=== PATIENT | female | born 1980 | race Caucasian/White ===

== ENCOUNTER 2019-04-25 19:56 | Inpatient (IN) | payer MEDICAID, SELFPAY ==
[2019-04-25] VITALS (7 sets, daily range): BP systolic 115–144; BP diastolic 69–101; PULSE 110–126; RESP 21–31; TEMP 36.2–36.7; O2SAT 99–100; BMI 16.7; BMI 16.6
[2019-04-25] MEDS: 0.9% Normal Saline 1,000 ML 999 ML IV ×2 (20:11→21:30)
--- NOTE | 2019-04-25 20:11 | RAD_ITS ---
STUDY: X-RAY CHEST REASON FOR EXAM: Female, 39 years old. Chest pain, nausea TECHNIQUE: Single AP portable view of the chest. COMPARISON: None. FINDINGS: EKG leads overlie the chest The lungs are clear and expanded. There is no demonstrated pleural abnormality. Normal size heart. Normal mediastinum and gabriele. Normal visualized pulmonary arteries. Normal visualized aortic arch and descending thoracic aorta. Normal visualized thoracic spine. Normal visualized ribs, clavicles, and shoulders. There is no demonstrated abnormality of the visualized soft tissue structures of the upper abdomen. RAD/Chest 1 View (Portable) IMPRESSION: Normal x-ray examination of the chest. Electronically Signed: Delvin Peralta MD at 20:36 EDT , Service support ,
--- NOTE | 2019-04-25 20:11 | EKG12_ITS ---
Test Reason : SOB Blood Pressure : / mmHG Vent. Rate : 123 BPM Atrial Rate : 123 BPM P-R Int : 126 ms QRS Dur : 078 ms QT Int : 344 ms P-R-T Axes : 083 084 036 degrees QTc Int : 492 ms Sinus tachycardia Biatrial enlargement Nonspecific ST abnormality Abnormal ECG Confirmed by NATHALIA CONLEY, VERITO ([id number]), associate editor ABRAN RUIZ ([id number]) on 04/27/2019 10:54:02 AM Referred By: EVA Confirmed By:VERITO SLOAN MD
--- NOTE | 2019-04-25 20:12 | ED.VIS.GEN ---
History of Present Illness Chief Complaint: Shortness of Breath Informant: Patient Onset: Yesterday Context: Gradual Onset Timing: Continuous Current Severity: Severe Maximum Severity: Severe Narrative: Patient is a 39-year-old female with type 1 diabetes mellitus presenting with nausea, vomiting, myalgias and hyperglycemia. She is concerned she is in DKA. Patient states she is been stressed out recently because her father just . This because her sugars to be higher. She denies any recent illnesses. She notes since yesterday her symptoms been progressing. She has also associated shortness of breath, chest tightness and abdominal discomfort. Patient states she was started to DKA 3 to 4 weeks ago and was hospitalized because of a GI bug that she got from her neighborhood kids. Patient states that she was only able to eat a couple pretzels today. She did take her Lantus but did not take her Humalog because she was not eating. She had a normal bowel movement today. She denies any other complaints at this time. Prior similar symptoms: Yes - DKA Recent Illness/Hospitalization: Yes - 3-4 weeks ago for DKA Past Medical History - Allergies and Home Meds Allergies/Adverse Reactions: Allergies No Known Allergies Allergy (Verified 04/25/19 20:02) Past Medical History: - - DM 1 Surgical History: appendectomy Smoking Status: Current every day smoker - Family History Maternal Family History: Reports: - - Denies any maternal medical history. Paternal Family History: Reports: Cancer - His father from throat cancer Review of Systems All systems negative except as indicated General: Reports: Malaise Cardiovascular: Reports: Chest pain Respiratory: Reports: Dyspnea Gastrointestinal: Reports: Abdominal pain, Nausea, Vomiting Musculoskeletal: Reports: Myalgias Physical Exam Vital Signs/Narrative: Vital Signs Temp Pulse Resp BP Pulse Ox 04/25/19 20:05 126 H 23 H 99 04/25/19 19:58 97.7 F L 125 H 31 H 144/87 H 100 Inital Vital Signs reviewed: Yes General: Well developed, Cachectic, No Acute Distress Head: Normocephalic, Atraumatic Eyes: Perrl, EOMI ENT: No rhinorrhea, Dry mucous membranes Neck: Supple, Nontender, No lymphadenopathy, No JVD Cardiovascular: Regular rhythm, No murmurs, Tachycardia Respiratory: CTA bilaterally, Chest nontender, - - Tachypnea Abdomen: Soft, Nondistended, Normal bowel sounds, Tender - Diffuse. Negative for: Guarding, Rebound tenderness Back: Nontender, Normal Inspection Extremities: Nontender, No edema Skin: Normal color, No rash Neurological: Alert, Oriented x3, Cranial nerves II-XII grossly intact, Normal Strength, Normal Sensation Psychological: Normal affect, - - Anxious Diagnostic/Tx/Re-eval Chest X-Ray - ED: 1 View, Read by ED Physician, Read by Radiologist, No Acute Disease Clinical Impression(s) from Imaging Studies Chest X-Ray 04/25/19 20:11 IMPRESSION: Normal x-ray examination of the chest. Electronically Signed: Delvin Peralta MD at 20:36 EDT , Service support , Laboratory Data 04/25/19 04/25/19 04/25/19 20:05 20:05 20:05 WBC 28.9 H RBC 4.88 Hgb 15.1 H Hct 49.0 H MCV 100.4 H MCH 30.9 MCHC 30.8 L RDW Std Deviation 44.7 H RDW Coeff of Adrienne 11.9 Plt Count 457 H MPV 11.0 Immature Gran % (Auto) 1.700 H Neut % (Auto) 89.1 H Lymph % (Auto) 4.7 L Stewart % (Auto) 4.2 Eos % (Auto) 0.0 Baso % (Auto) 0.3 Absolute Neuts (auto) 25.8 H Absolute Lymphs (auto) 1.37 Nucleated RBC % 0 Differential Comment SCANNED Platelet Estimate SLT INC Macrocytosis 1+ Specimen Type Sample Site VBG pH VBG pO2 VBG O2 Sat (Calc) VBG O2 Content VBG Base Excess POC Mix VBG pCO2 Pt Tmp O2 Delivery Device Blood Gas Notified Whom Blood Gas Notified Time Sodium 132 L Potassium 5.2 H Chloride 100 Carbon Dioxide 6.0 L* Anion Gap 26 H BUN 19 H Creatinine 1.21 H Estim Creat Clear Calc 45.59 Est GFR (MDRD) Af Amer 63 Est GFR (MDRD) Non-Af 52 L BUN/Creatinine Ratio 15.7 Glucose 577 H* Calcium 9.4 Troponin I < 0.015 Urine Color Urine Clarity Urine pH Ur Specific [place] Urine Protein Urine Glucose (UA) Urine Ketones Urine Occult Blood Urine Nitrite Urine Bilirubin Urine Urobilinogen Ur Leukocyte Esterase Urine RBC Urine WBC Ur Squamous Epith Cells Urine Bacteria Urine Mucus Ur Drug Screen Comment Acetone Level LARGE H POC Glucose 04/25/19 04/25/19 04/25/19 20:05 20:11 20:20 WBC RBC Hgb Hct MCV MCH MCHC RDW Std Deviation RDW Coeff of Adrienne Plt Count MPV Immature Gran % (Auto) Neut % (Auto) Lymph % (Auto) Stewart % (Auto) Eos % (Auto) Baso % (Auto) Absolute Neuts (auto) Absolute Lymphs (auto) Nucleated RBC % Differential Comment Platelet Estimate Macrocytosis Specimen Type Sample Site VBG pH VBG pO2 VBG O2 Sat (Calc) VBG O2 Content VBG Base Excess POC Mix VBG pCO2 Pt Tmp O2 Delivery Device Blood Gas Notified Whom Blood Gas Notified Time Sodium Cancelled Potassium Cancelled Chloride Cancelled Carbon Dioxide Cancelled Anion Gap Cancelled BUN Cancelled Creatinine Cancelled Estim Creat Clear Calc Cancelled Est GFR (MDRD) Af Amer Cancelled Est GFR (MDRD) Non-Af Cancelled BUN/Creatinine Ratio Cancelled Glucose Cancelled Calcium Cancelled Troponin I Urine Color Straw Urine Clarity Clear Urine pH 5.0 Ur Specific [place] 1.020 Urine Protein 30 H Urine Glucose (UA) 1000 H Urine Ketones 150 H Urine Occult Blood 250 H Urine Nitrite Negative Urine Bilirubin Negative Urine Urobilinogen Normal Ur Leukocyte Esterase Negative Urine RBC 5-10 SEEN Urine WBC 0 SEEN Ur Squamous Epith Cells 0-5 SEEN Urine Bacteria 0 SEEN Urine Mucus 0 SEEN Ur Drug Screen Comment Acetone Level POC Glucose > 500 H* 04/25/19 04/25/19 04/25/19 20:21 20:25 21:14 WBC RBC Hgb Hct MCV MCH MCHC RDW Std Deviation RDW Coeff of Adrienne Plt Count MPV Immature Gran % (Auto) Neut % (Auto) Lymph % (Auto) Stewart % (Auto) Eos % (Auto) Baso % (Auto) Absolute Neuts (auto) Absolute Lymphs (auto) Nucleated RBC % Differential Comment Platelet Estimate Macrocytosis Specimen Type HAL Sample Site OTHER VBG pH 7.00 L* VBG pO2 54 H VBG O2 Sat (Calc) 70 VBG O2 Content 6 L VBG Base Excess -26 L POC Mix VBG pCO2 Pt Tmp 20.7 L O2 Delivery Device Room Air Blood Gas Notified Whom ED MD Blood Gas Notified Time 2002 Sodium Potassium Chloride Carbon Dioxide Anion Gap BUN Creatinine Estim Creat Clear Calc Est GFR (MDRD) Af Amer Est GFR (MDRD) Non-Af BUN/Creatinine Ratio Glucose Calcium Troponin I Urine Color Urine Clarity Urine pH Ur Specific [place] Urine Protein Urine Glucose (UA) Urine Ketones Urine Occult Blood Urine Nitrite Urine Bilirubin Urine Urobilinogen Ur Leukocyte Esterase Urine RBC Urine WBC Ur Squamous Epith Cells Urine Bacteria Urine Mucus Ur Drug Screen Comment Acetone Level POC Glucose > 500 H* - Rhythm Strip Rhythm Strip: Sinus Tach Rate: 123 Ectopy: None - EKG Initial EKG Interpretation: Sinus Tachycardia, - - Sinus tachycardia at a rate of 123 Normal intervals Normal axis Normal ST segments Prominent P waves - Medical Decision Making Patient is evaluated for intractable nausea and vomiting. She is hyperglycemic. She has a history of DM 1 as well as DKA. Presentation is concerning for acute DKA. Patient is acidotic with an elevated anion, hyperglycemic and has large acetones. She is given 2 L IV fluids. Her potassium is normal and she started on insulin drip at 5 units an hour. Patient does have a significant leukocytosis however I suspect it is reactive. No obvious source of infection is found. She is complaining of generalized body pains and abdominal pain however I do not suspect an acute infection at this time. Troponin is normal. EKG shows sinus tachycardia but no ACS. Patient is admitted to the ICU for further treatment of her DKA. Discussed with Dr. Ceja who is agreeable. Patient does states she is feeling very anxious and jittery so she is given 1 dose of Ativan in the emergency room. Patient is mentating appropriately and does not have signs of coma while in the emergency room. - Critical Care Time Critical care time (excluding procedures): 30-74 minutes - 32 minutes of critical care time?frequent reevaluation, medication orders, discussing with consultants and bedside care for treatment and management of acute DKA ED Disposition - Plan for ED Patient: Disposition: Acute Care Hospital [facility] Diagnosis: DKA (diabetic ketoacidoses), LAUREN (acute kidney injury), Leukocytosis
[2019-04-25 20:15] LABS: Bedside Glucose > 500 mg/dL (70-110)
--- NOTE | 2019-04-25 20:16 | ED.RN ---
NO OLD EKG
[2019-04-25] MEDS: Ondansetron 4 MG/2 ML Vial IV (20:28)
[2019-04-25 20:30] LABS: Absolute Lymphocyte Count 1.37 X10^3/uL (0.83-4.51); Absolute Neutrophil Count 25.8 X10^3/uL (2.0-7.7); Basophil# 0.09 X10^3/uL; Basophil% 0.3 % (0-1); Hemoglobin 15.1 g/dL (12.0-15.0); Lymphocyte # 1.37 X10^3/ul (4.0); Lymphocyte % 4.7 % (19-41); Mean Corp Hgb Conc 30.8 g/dL (32-36); Mean Corpuscular Hgb 30.9 pg (27.0-32.0); Mean Corpuscular Volume 100.4 fL (81-99); Monocyte% 4.2 % (0-10); NRBC Flagged by Analyzer 0 % (0-5); Neutrophil # 25.76 X10^3/uL (2.7-7.7); Neutrophil % 89.1 % (47-70); POSITIVE DIFFERENTIAL YES; Platelet Count 457 K/mm3 (150-450); RBC Distribution Width CV 11.9 % (11.6-14.6); RBC Distribution Width SD 44.7 fl (35.1-43.9); Red Blood Count 4.88 M/mm3 (4.2-5.4); White Blood Count 28.9 K/mm3 (4.4-11.0)
[2019-04-25 20:35] LABS: Blood Gas Specimen Type VEN; O2 Delivery Device Room Air; SITE OTHER; Time Given 2003; VBG BASE EXCESS -26 mmol/L (-1.0-3.5); VBG Bicarbonate 5 mmol/L (22-26); VBG Oxygen Content 6 mmol/L (23-33); VBG PO2 54 mmHg (25-40); VBG SO2 70 % (50-70); VBG pCO2 20.7 mmHg (41-51)
[2019-04-25 20:35] LABS: Bacteria 0 SEEN /hpf (None Seen); Mucous, Urine 0 SEEN /hpf (<or=2+); White Blood Cells 0 SEEN /hpf (0-5)
[2019-04-25 20:36] LABS: Color, Urine Straw (Yellow); Glucose, Dipstick 1000 mg/dl (Normal); Leukocyte Esterase-Dipstick Negative /ul (Negative); Nitrite-Dipstick Negative (Negative); Occult Blood-Urine 250 /ul (Negative); Protein-Dipstick 30 mg/dl (Negative); Urine Bilirubin Dipstick Negative (Negative); Urine Clarity Clear (Clear); Urine Urobilinogen Normal (Normal)
[2019-04-25 20:36] LABS: Differential Indicated SCAN CRITERIA MET
--- NOTE | 2019-04-25 20:36 | CPS ---
Critical results given to Dr. Nuñez.
[2019-04-25 20:48] LABS: Anion Gap 26 (5-15); BUN 19 mg/dL (7-18); BUN/Creat Ratio 15.7 RATIO (10-20); Calcium,Total 9.4 mg/dL (8.5-10.1); Chloride 100 mmol/L (98-107); Creatinine, Serum 1.21 mg/dL (0.55-1.02); EST Glomerular Filtration Rate 52 mL/min (>60); Est Glom Filt Rate - Afr Amer 63 mL/min (>60); Estimated Creatinine Clearance 45.59 ml/min; Glucose 577 mg/dL (74-106); Potassium 5.2 mmol/L (3.5-5.1); Sodium Level 132 mmol/L (136-145)
--- NOTE | 2019-04-25 20:49 | ED.RN ---
lab called with critical lab results. urine ketones 150. co2 level [address] glucose level 576. Dr. Nuñez made aware. no new orders at this time
[2019-04-25 20:55] LABS: Ketone-Dipstick 150 mg/dl (Negative)
[2019-04-25 20:59] LABS: Red Blood Cells-Urine 5-10 SEEN /hpf (0-5); Squamous Epithelial Cells - UA 0-5 SEEN /hpf (5-10)
[2019-04-25] MEDS: LORazepam 2 MG/ML Syringe 0.5 MG IV (21:19)
[2019-04-25 21:21] LABS: Bedside Glucose > 500 mg/dL (70-110)
--- NOTE | 2019-04-25 21:28 | HP.PCM_ITS ---
Problem List (1) DKA (diabetic ketoacidoses) Status: Acute History of Present Illness Date of Admission: 04/25/19 Chief Complaint: SHORTNESS OF BREATH The patient is a 39 year old F with a significant history of type 1 diabetes who presented to emergency department with shortness of breath. Her symptoms started a day before presentation. Associated with symptoms is nausea and vomiting. Also while in the emergency department department patient had one loose bowel movement. Further she has chest heaviness and abdominal pain. Patient lives in the [place] but came to the [facility] because her father . Patient reports that on the day of presentation she took her twice daily Lantus. However she was unable to take her short acting insulin because she was having nausea and vomiting and could not keep anything down her stomach. At the emergency department patient was very anxious and was given Ativan to help calm her down. Past Medical History Medical History: Medical History (Last Updated 04/25/19 @ 21:37 by Marcial Diehl MD) Type 1 diabetes mellitus E10.9 Allergies No Known Allergies Allergy (Verified 04/25/19 20:02) Home Medications: Ambulatory Orders Medication Instructions Recorded Insulin Glargine,Hum.rec.anlog 10 unit SQ BID 04/25/19 [Lantus] Insulin Lispro [Humalog] unit SQ TID 04/25/19 Surgical History: appendectomy Lives: Alone Smoking Status: Current every day smoker Tobacco Use: Cigarettes Alcohol: Rare Drugs: Marijuana - *Family History Maternal History Items: - - Denies any maternal medical history. Paternal History Items: Cancer - His father from throat cancer Review of Systems Constitutional: Reports: Anorexia. Denies: Chills, Fever, Weight Change HEENT: Denies: Head Aches, Sinus Congestion, Sinus Drainage Cardiovascular: Reports: Heaviness. Denies: Light Headedness, Palpitations, Syncope Respiratory: Reports: Shortness of Breath. Denies: Cough, Sputum production Gastrointestinal: Reports: Abdominal Pain, Diarrhea, Nausea, Vomiting Genitourinary: Denies: Dysuria Musculoskeletal: Denies: Joint Pain, Joint Tenderness Skin: Denies: Rash, Wounds Neurological: Denies: Numbness, Tingling, Focal weakness Psychiatric: Reports: Anxiety. Denies: Depression, Homicidal Ideations, Suicidal Ideations Hematologic/ Lymphatic: Denies: Easy Bruising, Easy Bleeding VTE Information - Inpt Only VTE Present on Admission: No VTE Mechan Device Prophylaxis: None VTE Pharm Prophylaxis ordered?: No Reason prophylaxis not ordered:: Treatment Not Indicated - Low risk. Encourage to ambulate. Patient Problems: Active and Suspected Problems (Last Updated 04/25/19 @ 21:37 by Marcial Diehl MD) DKA (diabetic ketoacidoses) (Acute) - Physical Exam Vitals/I&O's: Vital Signs Temp Pulse Resp BP Pulse Ox 97.1 F L 110 H 25 H 140/96 H 100 04/25/19 21:02 04/25/19 21:02 04/25/19 21:02 04/25/19 21:02 04/25/19 21:02 Oxygen Delivery Method Room Air Weight: 47.2 kg Body Mass Index (BMI) 16.7 Finger Stick Blood Glucose 509 General: Alert, Oriented x3, Cooperative HEENT: Atraumatic, PERRLA, EOMI, Normocephalic, - Oral: - - Loss of multiple teeth. Neck: Supple, No JVD, Negative Carotid Bruits Lungs: Clear to auscultation, Normal air movement, Short of Breath, Tachypneic, Using Accessory Muscles Cardiovascular: Normal S1, Normal S2, No murmurs, Tachycardic Abdomen: Bowel Sounds Present, Soft, Non Tender Extremities: No edema, Capillary Refill Less than 3 Seconds Skin: No rashes, No breakdown Musculoskeletal: No Tenderness to Palpation of Joints or Extremities Neurological: Cranial nerves II-XII grossly intact Psych/Mental Status: Anxious Laboratory Results 04/25/19 20:05: WBC 28.9 H, RBC 4.88, Hgb 15.1 H, Hct 49.0 H, MCV 100.4 H, MCH 30.9, MCHC 30.8 L, RDW Std Deviation 44.7 H, RDW Coeff of Adrienne 11.9, Plt Count 457 H, MPV 11.0, Immature Gran % (Auto) 1.700 H, Neut % (Auto) 89.1 H, Lymph % (Auto) 4.7 L, [place] % (Auto) 4.2, Eos % (Auto) 0.0, Baso % (Auto) 0.3, Absolute Neuts (auto) 25.8 H, Absolute Lymphs (auto) 1.37, Nucleated RBC % 0 04/25/19 20:05: Sodium 132 L, Potassium 5.2 H, Chloride 100, Carbon Dioxide 6.0 L*, Anion Gap 26 H, BUN 19 H, Creatinine 1.21 H, Estim Creat Clear Calc 45.59, Est GFR (MDRD) Af Amer 63, Est GFR (MDRD) Non-Af 52 L, BUN/Creatinine Ratio 15.7, Glucose 577 H*, Calcium 9.4, Troponin I < 0.015 04/25/19 20:05: Acetone Level LARGE H 04/25/19 20:05: Sodium Pending, Potassium Pending, Chloride Pending, Carbon Dioxide Pending, Anion Gap Pending, BUN Pending, Creatinine Pending, Est GFR (MDRD) Af Amer Pending, Est GFR (MDRD) Non-Af Pending, BUN/Creatinine Ratio Pending, Glucose Pending, Calcium Pending 04/25/19 20:11: POC Glucose > 500 H* 04/25/19 20:20: Urine Color Straw, Urine Clarity Clear, Urine pH 5.0, Ur Specific [place] 1.020, Urine Protein 30 H, Urine Glucose (UA) 1000 H, Urine Ketones 150 H, Urine Occult Blood 250 H, Urine Nitrite Negative, Urine Bilirubin Negative, Urine Urobilinogen Normal, Ur Leukocyte Esterase Negative, Urine RBC 5-10 SEEN, Urine WBC 0 SEEN, Ur Squamous Epith Cells 0-5 SEEN, Urine Bacteria 0 SEEN, Urine Mucus 0 SEEN 04/25/19 20:21: Specimen Type HAL, Sample Site OTHER, VBG pH 7.00 L*, VBG pO2 54 H, VBG O2 Sat (Calc) 70, VBG O2 Content 6 L, VBG Base Excess -26 L, POC Mix VBG pCO2 Pt Tmp 20.7 L, O2 Delivery Device Room Air, Blood Gas Notified Whom ED , Blood Gas Notified Time 200204/25/19 21:14: POC Glucose > 500 H* Current Medications Dextrose (D50w Syringe) 0 gm IV X1 PRN; Protocol PRN Reason: Hypoglycemia Protocol Sodium Chloride () 1,000 mls @ 999 mls/hr IV .Q1H1M ONE Last Admin: 04/25/19 20:11 Dose: 999 mls/hr Documented by: Insulin Human Lispro 100 unit/ (Sodium Chloride) 100 mls @ 4.72 mls/hr IV .[id number] [facility]; Protocol Last Admin: 04/25/19 21:20 Dose: 0.1 units/kg/hr, 4.7 mls/hr Documented by: Morphine Sulfate () 1 mg IV Q4H PRN PRN PRN Reason: MODERATE AND SEVERE PAIN Assessment/Plan All Active Problems (Last Updated 04/25/19 @ 21:37 by Marcial Diehl MD) DKA (diabetic ketoacidoses) (Acute) The patient is a 39 year old F with a significant history of type 1 diabetes who presented to emergency department with shortness of breath; nausea; vomiting; one loose bowel movement; chest heaviness; abdominal pain; anxiety was found to have ketones; anion gap with respiratory acidosis and elevated glucose consistent with DKA. DKA Serum glucose 577 acetone level large Bicarbonate level of 6. VBG pH of 7. Anion gap of 26 Sodium 132, . Corrected sodium 140 Insulin drip started from emergency department; continue Completed IV bolus of normal saline and normal saline infusion Because of potassium of 5.2 we will start patient on half-normal saline with 20 mEq of potassium. BMP every 4 hours to calculate anion gap. N.p.o. for now Admitted to ICU ICU electrolyte protocol ordered A1c ordered. Morphine and Zofran] as needed. Speech Communication Instructor consult. LAUREN On presentation creatinine was 1.21. No previous values to compare with. BUN over creatinine was 15.720 towards intrinsic renal etiology. Likely prerenal progression to ATN. IV hydration as above. Trend BMP. Avoid nephrotoxic's. Neutrophilic leukocytosis On presentation her white count was 28.9 with neutrophilic predominance. Likely reactive from stress secondary to DKA. Trend CBC. Erythrocytosis. On presentation her hemoglobin was 15.1. Hematocrit was 49. Likely secondary from dehydration and long-term effect of smoking. Trend CBC Tobacco abuse Counselled Declined nicotine patch Marijuana abuse Counselled DVT prophylaxis Low risk. Encouraged to ambulate. Code Visit Inpatient E&M: 38948 Init Hosp L3
[2019-04-25 21:39] LABS: Differential Comment SCANNED; Platelet Estimate SLT INC (ADEQ)
[2019-04-25 21:40] LABS: Macrocytosis 1+
[2019-04-25 23:25] LABS: Amphetamine Urine VISTA NEGATIVE (<1000 ng/mL); Barbiturate Urine VISTA NEGATIVE (< 200 ng/mL); Benzodiazepine Urine VISTA NEGATIVE (< 200 ng/mL); Cocaine Urine VISTA NEGATIVE (< 300 ng/mL); Ecstacy Urine VISTA NEGATIVE (< 500 ng/mL); Methadone Urine VISTA NEGATIVE (< 300 ng/mL); PCP Urine VISTA NEGATIVE (< 25 ng/mL); THC Urine VISTA POSITIVE (< 50 ng/mL); Vista UDS pH Range 6
[2019-04-25 23:40] LABS: Bedside Glucose 496 mg/dL (70-110)
[2019-04-25 23:40] LABS: Bedside Glucose 357 mg/dL (70-110)
[2019-04-26] VITALS (21 sets, daily range): BP systolic 90–138; BP diastolic 59–93; PULSE 73–120; RESP 15–28; TEMP 36.7–36.9; O2SAT 96–100
[2019-04-26 00:08] LABS: Hemoglobin A1c 10.7 % (4.2-6.3)
[2019-04-26] MEDS: Dext 5%-0.45% NS 1,000 ML 150 ML IV (01:05)
[2019-04-26 01:09] LABS: Anion Gap 19 (5-15); BUN 16 mg/dL (7-18); BUN/Creat Ratio 17.7 RATIO (10-20); Chloride 112 mmol/L (98-107); EST Glomerular Filtration Rate 73 mL/min (>60); Est Glom Filt Rate - Afr Amer 88 mL/min (>60); Estimated Creatinine Clearance 60.65 ml/min; Glucose 268 mg/dL (74-106); Potassium 5.1 mmol/L (3.5-5.1); Sodium Level 138 mmol/L (136-145)
[2019-04-26] MEDS: Potassium Chloride 10 MEQ in Dext 5%-0.45% NS 1,000 ML 150 MEQ IV ×2 (02:41→09:20)
[2019-04-26 02:46] LABS: Bedside Glucose 247 mg/dL (70-110)
[2019-04-26 02:46] LABS: Bedside Glucose 289 mg/dL (70-110)
[2019-04-26 02:46] LABS: Bedside Glucose 216 mg/dL (70-110)
[2019-04-26 04:31] LABS: Bedside Glucose 233 mg/dL (70-110)
[2019-04-26 04:31] LABS: Bedside Glucose 227 mg/dL (70-110)
[2019-04-26 04:53] LABS: Anion Gap 16 (5-15); BUN 12 mg/dL (7-18); BUN/Creat Ratio 12.6 RATIO (10-20); Calcium,Total 8.1 mg/dL (8.5-10.1); Chloride 112 mmol/L (98-107); Creatinine, Serum 0.95 mg/dL (0.55-1.02); EST Glomerular Filtration Rate 69 mL/min (>60); Est Glom Filt Rate - Afr Amer 83 mL/min (>60); Estimated Creatinine Clearance 57.45 ml/min; Glucose 202 mg/dL (74-106); Potassium 4.6 mmol/L (3.5-5.1); Sodium Level 138 mmol/L (136-145)
[2019-04-26 05:23] LABS: Absolute Neutrophil Count 22.1 X10^3/uL (2.0-7.7); Basophil# 0.08 X10^3/uL; Basophil% 0.3 % (0-1); Hematocrit 43.4 % (37-47); Hemoglobin 13.6 g/dL (12.0-15.0); Lymphocyte % 15.3 % (19-41); Mean Corp Hgb Conc 31.3 g/dL (32-36); Mean Corpuscular Volume 98.9 fL (81-99); Mean Platelet Vol. 10.6 fl (6.2-12.0); Monocyte# 1.57 X10^3/uL; Monocyte% 5.5 % (0-10); NRBC Flagged by Analyzer 0 % (0-5); Neutrophil # 22.13 X10^3/uL (2.7-7.7); Neutrophil % 76.9 % (47-70); POSITIVE DIFFERENTIAL YES; Platelet Count 368 K/mm3 (150-450); RBC Distribution Width CV 11.8 % (11.6-14.6); RBC Distribution Width SD 43.5 fl (35.1-43.9); Red Blood Count 4.39 M/mm3 (4.2-5.4); White Blood Count 28.8 K/mm3 (4.4-11.0)
[2019-04-26 05:36] LABS: Differential Indicated SCAN CRITERIA MET
[2019-04-26 06:06] LABS: Differential Comment SCANNED
[2019-04-26 06:06] LABS: Bedside Glucose 187 mg/dL (70-110)
[2019-04-26 06:06] LABS: Bedside Glucose 197 mg/dL (70-110)
--- NOTE | 2019-04-26 06:53 | CON.PCM_ITS ---
Problem List (1) Dental abscess Status: Suspected (2) DKA (diabetic ketoacidoses) Status: Acute Qualifiers: Diabetes mellitus type: type 1 Diabetes mellitus complication detail: without coma Qualified Code(s): E10.10 - Type 1 diabetes mellitus with ketoacidosis without coma (3) LAUREN (acute kidney injury) Status: Acute (4) Leukocytosis Status: Acute Qualifiers: Leukocytosis type: other Qualified Code(s): D72.828 - Other elevated white blood cell count Reason for Consult Date of Consultation: 04/26/19 Reason for Consultation: DKA History of Present Illness: The patient is a 39 year old F, with past medical history listed below, who presented to [facility] on 04/25/2019 secondary to nausea, vomiting, myalgias and hyperglycemia. Patient states that she is currently in town secondary to her father's . Patient states that she has not had any recent illnesses, but has noticed progression of symptoms over the past day. Patient has not used use, but states that she was admitted for DKA 3 to 4 weeks ago secondary to a GI bug. Patient typically gets cared for at [facility]. Patient reportedly did take her Lantus, but has not been taking her Humalog secondary to decreased appetite. Patient has been reporting intermittent dental pain. In the ER, patient was noted to be hyperglycemic with large acetones. Patient was given 2 L of IV fluids and potassium. Patient has remained hemodynamically stable overnight. Patient was transferred to the intensive care unit for continuation of the DKA protocol. This morning, patient reports some improvement in overall condition. However, patient still has some mild nausea and drowsiness. Patient believes the drowsiness is secondary to medication she received in the ER. Patient is reporting some dental issues. Patient states she has been on penicillin in the past secondary to dental abscesses. Patient denies any rashes, dysuria or productive cough. No sinus congestion or purulent sputum is been reported. Review of systems otherwise negative from a constitutional, HEENT, respiratory, cardiovascular, GI, genitourinary, musculoskeletal, skin, neurologic, psych iatric and hematologic system unless stated above. Past Medical History Medical History: Medical History (Last Updated 04/25/19 @ 21:37 by Marcial Diehl MD) Type 1 diabetes mellitus E10.9 Allergies No Known Allergies Allergy (Verified 04/25/19 20:02) Home Medications: Ambulatory Orders Medication Instructions Recorded Insulin Glargine,Hum.rec.anlog 10 unit SQ BID 04/25/19 [Lantus] Insulin Lispro [Humalog] unit SQ TID 04/25/19 Surgical History: appendectomy Lives: Alone Smoking Status: Current every day smoker Tobacco Use: Cigarettes Alcohol: Rare Drugs: Marijuana - *Family History Maternal History Items: - - Denies any maternal medical history. Paternal History Items: Cancer - His father from throat cancer Review of Systems Comment: See HPI Patient Problems: Active and Suspected Problems (Last Updated 04/25/19 @ 21:37 by Marcial Diehl MD) DKA (diabetic ketoacidoses) (Acute) LAUREN (acute kidney injury) (Acute) Leukocytosis (Acute) Dental abscess (Suspected) Objective: Chest x-ray shows no acute infiltrates. - Physical Exam Vitals/I&O's: Vital Signs Temp Pulse Resp BP Pulse Ox 36.7 C 102 H 18 100/61 96 04/26/19 04:00 04/26/19 06:00 04/26/19 06:00 04/26/19 06:00 04/26/19 06:00 Oxygen Delivery Method Room Air Weight: 47.5 kg Body Mass Index (BMI) 16.6 Finger Stick Blood Glucose 187 Intake and Output for Last 24 Hours 04/24/19 04/25/19 04/26/19 23:59 23:59 23:59 Intake Total 2378.66 / 2378.66 914.62 / 914.62 Output Total 1050 / 1050 Balance 2378.66 / 2378.66 -135.38 / -135.38 General: Alert, Oriented x3, Cooperative, No apparent distress, - - Appears older than stated age. Thin build. HEENT: Atraumatic, PERRLA, EOMI, Normocephalic, - - No scleral icterus or injection Oral: - - Very poor dentition. Some tenderness to palpation Neck: Supple, No JVD, No Nodes, Trachea Midline Lungs: Clear to auscultation, Normal air movement, No rhonchi, No wheeze, No rales, - - Symmetric expansion. No dullness to percussion. Cardiovascular: Regular rate, Regular Rhythm, Normal S1, Normal S2, No murmurs, No rub noted, No Gallop Abdomen: Bowel Sounds Present, Soft, Non Tender, Non-Distended Extremities: No clubbing, No cyanosis, No edema, Capillary Refill Less than 3 Seconds Skin: No rashes, No breakdown Musculoskeletal: No Tenderness to Palpation of Joints or Extremities Lymphatic: No Cervical, Supraclavicular, or Inguinal Adenopathy Neurological: Cranial nerves II-XII grossly intact, Neuro grossly intact, Motor Exam 5/5 strength throughout Psych/Mental Status: Alert and oriented to time, place, person, mood and affect Laboratory Results 04/25/19 20:05: WBC 28.9 H, RBC 4.88, Hgb 15.1 H, Hct 49.0 H, MCV 100.4 H, MCH 30.9, MCHC 30.8 L, RDW Std Deviation 44.7 H, RDW Coeff of Adrienne 11.9, Plt Count 457 H, MPV 11.0, Immature Gran % (Auto) 1.700 H, Neut % (Auto) 89.1 H, Lymph % (Auto) 4.7 L, [place] % (Auto) 4.2, Eos % (Auto) 0.0, Baso % (Auto) 0.3, Absolute Neuts (auto) 25.8 H, Absolute Lymphs (auto) 1.37, Nucleated RBC % 0, Differential Comment SCANNED, Platelet Estimate SLT INC, Macrocytosis 1+ 04/25/19 20:05: Sodium 132 L, Potassium 5.2 H, Chloride 100, Carbon Dioxide 6.0 L*, Anion Gap 26 H, BUN 19 H, Creatinine 1.21 H, Estim Creat Clear Calc 45.59, Est GFR (MDRD) Af Amer 63, Est GFR (MDRD) Non-Af 52 L, BUN/Creatinine Ratio 15.7, Glucose 577 H*, Calcium 9.4, Troponin I < 0.015 04/25/19 20:05: Acetone Level LARGE H 04/25/19 20:05: Sodium Cancelled, Potassium Cancelled, Chloride Cancelled, Carbon Dioxide Cancelled, Anion Gap Cancelled, BUN Cancelled, Creatinine Cancelled, Estim Creat Clear Calc Cancelled, Est GFR (MDRD) Af Amer Cancelled, Est GFR (MDRD) Non-Af Cancelled, BUN/Creatinine Ratio Cancelled, Glucose Cancelled, Calcium Cancelled 04/25/19 20:05: Hemoglobin A1c 10.7 H 04/25/19 20:11: POC Glucose > 500 H* 04/25/19 20:20: Urine Color Straw, Urine Clarity Clear, Urine pH 5.0, Ur Specific [place] 1.020, Urine Protein 30 H, Urine Glucose (UA) 1000 H, Urine Ketones 150 H, Urine Occult Blood 250 H, Urine Nitrite Negative, Urine Bilirubin Negative, Urine Urobilinogen Normal, Ur Leukocyte Esterase Negative, Urine RBC 5-10 SEEN, Urine WBC 0 SEEN, Ur Squamous Epith Cells 0-5 SEEN, Urine Bacteria 0 SEEN, Urine Mucus 0 SEEN 04/25/19 20:21: Specimen Type HAL, Sample Site OTHER, VBG pH 7.00 L*, VBG pO2 54 H, VBG O2 Sat (Calc) 70, VBG O2 Content 6 L, VBG Base Excess -26 L, POC Mix VBG pCO2 Pt Tmp 20.7 L, O2 Delivery Device Room Air, Blood Gas Notified Whom ED , Blood Gas Notified Time 200204/25/19 20:25: Urine Opiates Screen NEGATIVE, Urine Methadone Screen NEGATIVE, Ur Barbiturates Screen NEGATIVE, Ur Phencyclidine Scrn NEGATIVE, Ur Amphetamines Screen NEGATIVE, U Methamphetamin-MDMA NEGATIVE, U Benzodiazepines Scrn NEGATIVE, Urine Cocaine Screen NEGATIVE, U Cannabinoids Screen POSITIVE H, Ur Drug Screen Comment 04/25/19 21:14: POC Glucose > 500 H* 04/25/19 22:03: POC Glucose 496 H* 04/25/19 22:59: POC Glucose 357 H 04/25/19 23:56: POC Glucose 289 H 04/26/19 00:35: Sodium 138, Potassium 5.1, Chloride 112 H, Carbon Dioxide 7.0 L* , Anion Gap 19 H, BUN 16, Creatinine 0.90, Estim Creat Clear Calc 60.65, Est GFR (MDRD) Af Amer 88, Est GFR (MDRD) Non-Af 73, BUN/Creatinine Ratio 17.7, Glucose 268 H, Calcium 8.0 L 04/26/19 01:03: POC Glucose 216 H 04/26/19 01:52: POC Glucose 247 H 04/26/19 03:06: POC Glucose 233 H 04/26/19 04:12: POC Glucose 227 H 04/26/19 04:20: Sodium 138, Potassium 4.6, Chloride 112 H, Carbon Dioxide 10.0 L , Anion Gap 16 H, BUN 12, Creatinine 0.95, Estim Creat Clear Calc 57.45, Est GFR (MDRD) Af Amer 83, Est GFR (MDRD) Non-Af 69, BUN/Creatinine Ratio 12.6, Glucose 202 H, Calcium 8.1 L 04/26/19 04:20: WBC 28.8 H, RBC 4.39, Hgb 13.6, Hct 43.4, MCV 98.9, MCH 31.0, MCHC 31.3 L, RDW Std Deviation 43.5, RDW Coeff of Adrienne 11.8, Plt Count 368, MPV 10.6, Immature Gran % (Auto) 2.000 H, Neut % (Auto) 76.9 H, Lymph % (Auto) 15.3 L, [place] % (Auto) 5.5, Eos % (Auto) 0.0, Baso % (Auto) 0.3, Absolute Neuts (auto) 22.1 H, Absolute Lymphs (auto) 4.40, Nucleated RBC % 0, Differential Comment SCANNED, Diff Path Review October04/26/19 05:01: POC Glucose 197 H 04/26/19 06:02: POC Glucose 187 H Current Medications Dextrose (D50w Syringe) 0 gm IV X1 PRN; Protocol PRN Reason: Hypoglycemia Glucagon () 1 mg IM .X1 PRN PRN Reason: Hypoglycemia Sodium Chloride () 1,000 mls @ 999 mls/hr IV .Q1H1M ONE Last Infusion: 04/25/19 22:30 Dose: Infused Documented by: Insulin Human Lispro 100 unit/ (Sodium Chloride) 100 mls @ 4.72 mls/hr IV .[id number] EPIFANIO; Protocol Last Titration: 04/26/19 06:00 Dose: 0.06 units/kg/hr, 3 mls/hr Documented by: Potassium Chloride 10 meq/ (Dextrose/Sodium Chloride) 1,005 mls @ 150 mls/hr IV .[id number] EPIFANIO Last Infusion: 04/26/19 05:14 Dose: 150 mls/hr Documented by: Sodium Chloride () 250 mls @ 15 mls/hr IV .[id number] PRN PRN Reason: Saline Flush Morphine Sulfate () 1 mg IV Q4H PRN PRN PRN Reason: MODERATE AND SEVERE PAIN Ondansetron HCl (Zofran) 4 mg IV Q8H PRN PRN PRN Reason: NAUSEA/VOMITING Sodium Chloride () 10 - 40 ml IV UD PRN PRN Reason: SALINE FLUSH Assessment/Plan Active and Suspected Problems (Last Updated 04/25/19 @ 21:37 by Marcial Diehl MD) DKA (diabetic ketoacidoses) (Acute) LAUREN (acute kidney injury) (Acute) Leukocytosis (Acute) Dental abscess (Suspected) RECOMMENDATIONS: 1. Initiate amoxicillin for possible dental abscess 2. Bolus 1 L of LR 3. Transition per DKA protocol 4. Monitor for signs of withdrawal. Nicotine patch if necessary IMPRESSIONS: 1. Acute DKA secondary to possible dental abscess Patient with very poor dentition. Significant leukocytosis on presentation with neutrophilic predominance. Patient was taking her Lantus, so unclear etiology for presentation of DKA. Will initiate patient on amoxicillin for possible dental abscess as an etiology. We will continue to aggressively volume resuscitate. Transition to p.o. diet per DKA protocol. Possible discharge later today so the patient can make it to her father's . 2. Possible acute kidney injury Likely prerenal etiology secondary to #1. Patient has been responding appropriately to volume resuscitation. Urine output remains acceptable. No indication for renal replacement therapy. 3. Tobacco abuse/marijuana abuse/thin build Complicates care, management, recovery and prognosis. Patient may be benefit from being evaluated by dietitian. Patient follows with the [facility] as an outpatient. Given poor dentition and thin build, there is some concern for possible methamphetamine use, but patient denies. Code Visit Inpatient E&M: 54057 Init Hosp L2
[2019-04-26 07:10] LABS: Bedside Glucose 184 mg/dL (70-110)
[2019-04-26] MEDS: Lactated Ringers 1,000 ML 999 ML IV (07:10)
[2019-04-26 08:19] LABS: Anion Gap 9 (5-15); BUN 10 mg/dL (7-18); BUN/Creat Ratio 10.6 RATIO (10-20); Calcium,Total 7.7 mg/dL (8.5-10.1); Chloride 115 mmol/L (98-107); Creatinine, Serum 0.94 mg/dL (0.55-1.02); EST Glomerular Filtration Rate 70 mL/min (>60); Est Glom Filt Rate - Afr Amer 84 mL/min (>60); Estimated Creatinine Clearance 59.06 ml/min; Glucose 148 mg/dL (74-106); Potassium 3.8 mmol/L (3.5-5.1); Sodium Level 139 mmol/L (136-145)
[2019-04-26] MEDS: AMOXICILLIN 500 MG CAPSULE PO ×3 (08:53→22:33)
--- NOTE | 2019-04-26 08:58 | PN_ITS ---
Patient Problems: Active and Suspected Problems (Last Updated 04/25/19 @ 21:37 by Marcial Diehl MD) DKA (diabetic ketoacidoses) (Acute) LAUREN (acute kidney injury) (Acute) Leukocytosis (Acute) Dental abscess (Suspected) Subjective: Chief complaint: Follow-up after admission for DKA, acute kidney injury and suspected dental abscess. Patient seen and examined. No acute events overnight. Today, she is feeling better. Denies any more shortness of breath. Denied abdominal pain, nausea vomiting. Denies fever chills. Her vital signs are stable. - Physical Exam Vitals/I&O's: Vital Signs Temp Pulse Resp BP Pulse Ox 98.4 F 91 18 108/76 99 04/26/19 08:00 04/26/19 08:00 04/26/19 08:00 04/26/19 08:00 04/26/19 08:00 Oxygen Delivery Method Room Air Weight: 104 lb 11.513 oz Body Mass Index (BMI) 16.6 Finger Stick Blood Glucose 144 Intake and Output for Last 24 Hours 04/24/19 04/25/19 04/26/19 23:59 23:59 23:59 Intake Total 2378.66 / 2378.66 1920.62 / 1920.62 Output Total 1050 / 1050 Balance 2378.66 / 2378.66 870.62 / 870.62 General: Alert, Oriented x3, Cooperative, No apparent distress HEENT: Atraumatic, PERRLA, EOMI Oral: Moist Mucosa, - - Dental caries, gingival swelling. Neck: Supple, No JVD, Negative Carotid Bruits, Trachea Midline, Thyroid Normal Size and Texture Lungs: Clear to auscultation, Normal air movement, No rhonchi, No wheeze, No rales Cardiovascular: Regular rate, Regular Rhythm, Normal S1, Normal S2, PMI Normal Abdomen: Bowel Sounds Present, Soft, Non Tender, Non-Distended, No Hepato- splenomegaly Extremities: No clubbing, No cyanosis, No edema Skin: No rashes, No breakdown Lymphatic: No Cervical, Supraclavicular, or Inguinal Adenopathy Neurological: Cranial nerves II-XII grossly intact, Motor Exam 5/5 strength throughout Psych/Mental Status: Normal Affect, Appropriate, Alert and oriented to time, place, person, mood and affect Laboratory Results 04/25/19 20:05: WBC 28.9 H, RBC 4.88, Hgb 15.1 H, Hct 49.0 H, MCV 100.4 H, MCH 30.9, MCHC 30.8 L, RDW Std Deviation 44.7 H, RDW Coeff of Adrienne 11.9, Plt Count 457 H, MPV 11.0, Immature Gran % (Auto) 1.700 H, Neut % (Auto) 89.1 H, Lymph % (Auto) 4.7 L, [place] % (Auto) 4.2, Eos % (Auto) 0.0, Baso % (Auto) 0.3, Absolute Neuts (auto) 25.8 H, Absolute Lymphs (auto) 1.37, Nucleated RBC % 0, Differential Comment SCANNED, Platelet Estimate SLT INC, Macrocytosis 1+ 04/25/19 20:05: Sodium 132 L, Potassium 5.2 H, Chloride 100, Carbon Dioxide 6.0 L*, Anion Gap 26 H, BUN 19 H, Creatinine 1.21 H, Estim Creat Clear Calc 45.59, E st GFR (MDRD) Af Amer 63, Est GFR (MDRD) Non-Af 52 L, BUN/Creatinine Ratio 15.7, Glucose 577 H*, Calcium 9.4, Troponin I < 0.015 04/25/19 20:05: Acetone Level LARGE H 04/25/19 20:05: Sodium Cancelled, Potassium Cancelled, Chloride Cancelled, Carbon Dioxide Cancelled, Anion Gap Cancelled, BUN Cancelled, Creatinine Cancelled, Estim Creat Clear Calc Cancelled, Est GFR (MDRD) Af Amer Cancelled, Est GFR (MDRD) Non-Af Cancelled, BUN/Creatinine Ratio Cancelled, Glucose Cancelled, Calcium Cancelled 04/25/19 20:05: Hemoglobin A1c 10.7 H 04/25/19 20:11: POC Glucose > 500 H* 04/25/19 20:20: Urine Color Straw, Urine Clarity Clear, Urine pH 5.0, Ur Specific [place] 1.020, Urine Protein 30 H, Urine Glucose (UA) 1000 H, Urine Ketones 150 H, Urine Occult Blood 250 H, Urine Nitrite Negative, Urine Bilirubin Negative, Urine Urobilinogen Normal, Ur Leukocyte Esterase Negative, Urine RBC 5-10 SEEN, Urine WBC 0 SEEN, Ur Squamous Epith Cells 0-5 SEEN, Urine Bacteria 0 SEEN, Urine Mucus 0 SEEN 04/25/19 20:21: Specimen Type HAL, Sample Site OTHER, VBG pH 7.00 L*, VBG pO2 54 H, VBG O2 Sat (Calc) 70, VBG O2 Content 6 L, VBG Base Excess -26 L, POC Mix VBG pCO2 Pt Tmp 20.7 L, O2 Delivery Device Room Air, Blood Gas Notified Whom ED , Blood Gas Notified Time 200204/25/19 20:25: Urine Opiates Screen NEGATIVE, Urine Methadone Screen NEGATIVE, Ur Barbiturates Screen NEGATIVE, Ur Phencyclidine Scrn NEGATIVE, Ur Amphetamines Screen NEGATIVE, U Methamphetamin-MDMA NEGATIVE, U Benzodiazepines Scrn NEGATIVE, Urine Cocaine Screen NEGATIVE, U Cannabinoids Screen POSITIVE H, Ur Drug Screen Comment 04/25/19 21:14: POC Glucose > 500 H* 04/25/19 22:03: POC Glucose 496 H* 04/25/19 22:59: POC Glucose 357 H 04/25/19 23:56: POC Glucose 289 H 04/26/19 00:35: Sodium 138, Potassium 5.1, Chloride 112 H, Carbon Dioxide 7.0 L* , Anion Gap 19 H, BUN 16, Creatinine 0.90, Estim Creat Clear Calc 60.65, Est GFR (MDRD) Af Amer 88, Est GFR (MDRD) Non-Af 73, BUN/Creatinine Ratio 17.7, Glucose 268 H, Calcium 8.0 L 04/26/19 01:03: POC Glucose 216 H 04/26/19 01:52: POC Glucose 247 H 04/26/19 03:06: POC Glucose 233 H 04/26/19 04:12: POC Glucose 227 H 04/26/19 04:20: Sodium 138, Potassium 4.6, Chloride 112 H, Carbon Dioxide 10.0 L , Anion Gap 16 H, BUN 12, Creatinine 0.95, Estim Creat Clear Calc 57.45, Est GFR (MDRD) Af Amer 83, Est GFR (MDRD) Non-Af 69, BUN/Creatinine Ratio 12.6, Glucose 202 H, Calcium 8.1 L 04/26/19 04:20: WBC 28.8 H, RBC 4.39, Hgb 13.6, Hct 43.4, MCV 98.9, MCH 31.0, MCHC 31.3 L, RDW Std Deviation 43.5, RDW Coeff of Adrienne 11.8, Plt Count 368, MPV 10.6, Immature Gran % (Auto) 2.000 H, Neut % (Auto) 76.9 H, Lymph % (Auto) 15.3 L, [place] % (Auto) 5.5, Eos % (Auto) 0.0, Baso % (Auto) 0.3, Absolute Neuts (auto) 22.1 H, Absolute Lymphs (auto) 4.40, Nucleated RBC % 0, Differential Comment SCANNED, Diff Path Review October04/26/19 05:01: POC Glucose 197 H 04/26/19 06:02: POC Glucose 187 H 04/26/19 07:01: POC Glucose 184 H 04/26/19 07:50: Sodium 139, Potassium 3.8, Chloride 115 H, Carbon Dioxide 15.0 L , Anion Gap 9, BUN 10, Creatinine 0.94, Estim Creat Clear Calc 59.06, Est GFR (MDRD) Af Amer 84, Est GFR (MDRD) Non-Af 70, BUN/Creatinine Ratio 10.6, Glucose 148 H, Calcium 7.7 L Current Medications Amoxicillin (Amoxil) 500 mg PO Q8 EPIFANIO Stop: 05/01/19 08:01 Last Admin: 04/26/19 08:53 Dose: 500 mg Documented by: Dextrose (D50w Syringe) 0 gm IV X1 PRN; Protocol PRN Reason: Hypoglycemia Glucagon () 1 mg IM .X1 PRN PRN Reason: Hypoglycemia Sodium Chloride () 1,000 mls @ 999 mls/hr IV .Q1H1M ONE Last Infusion: 04/25/19 22:30 Dose: Infused Documented by: Insulin Human Lispro 100 unit/ (Sodium Chloride) 100 mls @ 4.72 mls/hr IV .[id number] EPIFANIO; Protocol Last Titration: 04/26/19 08:00 Dose: 0.06 units/kg/hr, 3 mls/hr Documented by: Potassium Chloride 10 meq/ (Dextrose/Sodium Chloride) 1,005 mls @ 150 mls/hr IV .Q6H42M EPIFANIO Last Infusion: 04/26/19 05:14 Dose: 150 mls/hr Documented by: Sodium Chloride () 250 mls @ 15 mls/hr IV .[id number] PRN PRN Reason: Saline Flush Morphine Sulfate () 1 mg IV Q4H PRN PRN PRN Reason: MODERATE AND SEVERE PAIN Ondansetron HCl (Zofran) 4 mg IV Q8H PRN PRN PRN Reason: NAUSEA/VOMITING Sodium Chloride () 10 - 40 ml IV UD PRN PRN Reason: SALINE FLUSH Medical Necessity - Tobacco Use Smoking Status: Current every day smoker Tobacco Use: Cigarettes Assessment/Plan All Active Problems (Last Updated 04/25/19 @ 21:37 by Marcial Diehl MD) DKA (diabetic ketoacidoses) (Acute) LAUREN (acute kidney injury) (Acute) Leukocytosis (Acute) This is a 39 years old female patient presented to the emergency room because of shortness of breath associated with nausea and vomiting and she was found to have diabetic ketoacidosis, acute kidney injury and suspected dental abscess. #1 diabetic ketoacidosis: She is on IV insulin drip as well as IV potassium replacement. Blood sugar is down to around 200s, anion gap is closing. Serum bicarb was 6 on admission, it is 15 this morning. Symptoms are improving. Remains on n.p.o. Plan to continue same treatment, repeat BMP to ensure closing anion gap, [facility] when anion gap closed. #2 acute kidney injury/mild hyperkalemia: Secondary to DKA. Kidney function is improving with IV fluids and correction of blood glucose. Potassium normalized. Plan as above. #3 dental caries/suspected dental abscess: Started empirically on oral amoxicillin. Recommended follow-up with dentist as outpatient. #4 uncontrolled type 1 diabetes mellitus: With frequent admissions to the hospital for DKA. Hemoglobin A1c is 10.7%. Patient mentioned that she has been seeing auxiliary plant operator in [place] but she did not see him for almost 1 year. Plan as above. #5 DVT prophylaxis: Low risk patient, no indication for prophylaxis. This note was generated with [employer] software. It may contain incorrect words, spelling, and punctuation that were not noted in checking the note before signing. Code Visit Inpatient E&M: 33650 Subs Hosp L2
[2019-04-26 09:00] LABS: Bedside Glucose 122 mg/dL (70-110)
[2019-04-26 09:00] LABS: Bedside Glucose 144 mg/dL (70-110)
--- NOTE | 2019-04-26 09:58 | CASEMGMT ---
Addendum entered by Diomedes Monreal 04/26/19 10:06: [facility] does accept Tamez LAURA. Original Note: RN CM Assessment Presentation: DKA Intro role of CM and purpose of RN CM assessment. Pt is sleepy but able to participate in assesment. Demographics, PCP and Pharmacy verified. Pt states she is living in [place] for past 6 months but still has Tamez LAURA in [place]. Pt is staying with her mother for next week for her father's . Pt states she has her blood glucose monitoring equipment and insulins. PCP: In [place] per patient Specialists: @ [facility], endocrinology Preferred Pharmacy: [facility] (usually goes to [facility] per pt) Insurance: Tamez LAURA Prescription Benefit: yes LNOK: Mother, Krysta Kwan. Mother lives in [place] Living Arrangements: Lives independently, no care needs identified. Transportation: Family will provide transportation DME: Blood Glucose monitoring HHC: none Patient DC goals: home DC PLAN: Home. David WATTS RN ACM
[2019-04-26 10:00] LABS: Bedside Glucose 118 mg/dL (70-110)
[2019-04-26 11:11] LABS: Bedside Glucose 92 mg/dL (70-110)
[2019-04-26 12:06] LABS: Bedside Glucose 75 mg/dL (70-110)
[2019-04-26 12:24] LABS: Anion Gap 9 (5-15); BUN 9 mg/dL (7-18); BUN/Creat Ratio 12.4 RATIO (10-20); Calcium,Total 7.8 mg/dL (8.5-10.1); Chloride 115 mmol/L (98-107); Creatinine, Serum 0.73 mg/dL (0.55-1.02); EST Glomerular Filtration Rate 94 mL/min (>60); Est Glom Filt Rate - Afr Amer 113 mL/min (>60); Estimated Creatinine Clearance 76.05 ml/min; Glucose 78 mg/dL (74-106); Potassium 3.4 mmol/L (3.5-5.1); Sodium Level 141 mmol/L (136-145)
[2019-04-26] MEDS: Insulin NPH Human 100 UNITS/ML PEN SC (13:00)
[2019-04-26 14:28] LABS: Pathologist Review Reviewed
[2019-04-26] MEDS: Insulin Lispro 100 UNIT/ML INSULN.PEN SC ×2 (16:28→22:34)
[2019-04-26 16:30] LABS: Bedside Glucose 233 mg/dL (70-110)
[2019-04-26 22:51] LABS: Bedside Glucose 276 mg/dL (70-110)
[2019-04-27 04:09] VITALS: BP 100/63; PULSE 68; RESP 16; TEMP 36.6; O2SAT 98
[2019-04-27] MEDS: AMOXICILLIN 500 MG CAPSULE PO (04:12)
[2019-04-27 06:31] LABS: Bedside Glucose 230 mg/dL (70-110)
[2019-04-27 06:48] LABS: Absolute Lymphocyte Count 2.56 X10^3/uL (0.83-4.51); Basophil# 0.02 X10^3/uL; Basophil% 0.3 % (0-1); Eosinophil# 0.02 X10^3/uL; Eosinophils% 0.3 % (0-5); Hematocrit 35.8 % (37-47); Hemoglobin 11.8 g/dL (12.0-15.0); Lymphocyte # 2.56 X10^3/ul (4.0); Lymphocyte % 35.9 % (19-41); Mean Corpuscular Hgb 30.6 pg (27.0-32.0); Mean Platelet Vol. 10.1 fl (6.2-12.0); Monocyte# 0.49 X10^3/uL; Monocyte% 6.9 % (0-10); NRBC Flagged by Analyzer 0 % (0-5); Neutrophil # 4.02 X10^3/uL (2.7-7.7); Neutrophil % 56.2 % (47-70); Platelet Count 263 K/mm3 (150-450); RBC Distribution Width CV 11.9 % (11.6-14.6); RBC Distribution Width SD 40.9 fl (35.1-43.9); Red Blood Count 3.85 M/mm3 (4.2-5.4); White Blood Count 7.1 K/mm3 (4.4-11.0)
[2019-04-27] MEDS: Insulin Lispro 100 UNIT/ML INSULN.PEN SC ×2 (07:06→11:39)
[2019-04-27 07:35] VITALS: O2SAT 96
[2019-04-27 08:20] VITALS: BP 111/74; PULSE 70; RESP 18; TEMP 36.9; O2SAT 100
--- NOTE | 2019-04-27 08:23 | DCINST_ITS ---
- Discharge Diagnoses Current Active Problems: Current Active and Chronic Problems (Last Updated 04/25/19 @ 21:37 by Marcial Diehl MD) Type 1 diabetes mellitus (Chronic) DKA (diabetic ketoacidoses) (Acute) LAUREN (acute kidney injury) (Acute) Leukocytosis (Acute) You will use the following diet at home:: Calorie/Carbohydrate Controlled (specify 1200, 1400, etc) - 1800 loc. Your food should be the consistency of: Regular Discharge Activity: Return to Normal Activity Weight Bearing Status: Full weight bearing Call your doctor if you observe: Fever of 101 or Higher, Shortness of breath, Dizziness, Fainting spells, Chest pain, Increased palpitations (irregular heartbeat), Uncontrolled pain Additional Instructions: Follow-up with your varnish blender in 2 to 3 weeks. Allergies/Adverse Reactions: Allergies No Known Allergies Allergy (Verified 04/25/19 20:02) Medications to take at Discharge Insulin Lispro [Humalog] 3 unit SQ TID 04/25/19 Amoxicillin [Amoxil] 500 mg PO Q8 #20 cap 04/27/19 Insulin Glargine,Hum.rec.anlog [Lantus] 12 unit SQ BID #0 04/27/19 The following prescriptions were given: Amoxicillin [Amoxil] 500 mg PO Q8 #20 cap Transmission Status: Pending to [facility] Primary Care Physician: Fay Morris,Out of [NON-STAFF] - Please follow up with your Primary Care Physician in: 1 week. Test Results: Test results from this visit will be discussed in further detail at your follow- up appointment, if applicable.
--- NOTE | 2019-04-27 10:46 | PCM.DC.SUM ---
Discharge Date and Diagnosis - Problem List Patient Problems: Active and Suspected Problems (Last Updated 04/25/19 @ 21:37 by Marcial Diehl MD) DKA (diabetic ketoacidoses) (Acute) LAUREN (acute kidney injury) (Acute) Leukocytosis (Acute) Dental abscess (Suspected) Date of Admission: 04/25/19 Date of Discharge: 04/27/19 - Primary Discharge Diagnosis Active and Suspected Problems (Last Updated 04/25/19 @ 21:37 by Marcial Diehl MD) #1 diabetic ketoacidosis. #2 acute kidney injury/mild hyperkalemia. #3 dental caries/suspected dental abscess. #4 uncontrolled type 1 diabetes mellitus. - Secondary Discharge Diagnosis Chronic Problems (Last Updated 04/25/19 @ 21:37 by Marcial Diehl MD) Type 1 diabetes mellitus (Chronic) Hospital Course and Treatment Imaging Results: Clinical Impression(s) from Imaging Studies Chest X-Ray 04/25/19 20:11 IMPRESSION: Normal x-ray examination of the chest. Electronically Signed: Delvin Peralta MD at 20:36 EDT , Service support , Dr. Chow, critical care. Operations: None Procedures: None Summary of Care Provided: Patient seen and examined on the day of discharge and appeared to be stable to be discharged home. She denies any more symptoms, no more nausea or vomiting. She has been tolerating ADA diet. Her vital signs are stable, afebrile. This is a 39 years old female patient presented to the emergency room because of shortness of breath associated with nausea and vomiting and she was found to have diabetic ketoacidosis, acute kidney injury and suspected dental abscess. #1 diabetic ketoacidosis: Treated with IV insulin drip and DKA protocol in the intensive care unit. Her anion gap closed and once on 9S, patient was started on dextrose 5%, ADA diet and started back on her insulin and sliding scale. Her symptoms resolved. After switching to insulin and diet, her sugar has been in the 200s. Dose of Lantus increased to 12 units subcu twice daily. Patient discharged home in a stable medical condition, dose of Lantus increased to 12 units twice daily, continued on her same dose of sliding scale, however recommended to follow-up with her hedis analyst in 2 weeks, recommended follow-up with PCP in 1 week. #2 acute kidney injury/mild hyperkalemia: Secondary to DKA. Treated with IV fluids and IV insulin drip as above. His kidney function returned back to normal and her potassium normalized. #3 dental caries/suspected dental abscess: Discharged on oral amoxicillin to complete 7 days of treatment, I recommended follow-up with dentist as outpatient. #4 uncontrolled type 1 diabetes mellitus: With frequent admissions to the hospital for DKA. Hemoglobin A1c is 10.7%. Discharged on Lantus and sliding scale as above, I recommended follow-up with endocrinology in 2 weeks. Patient discharged home in a stable medical condition, discharged on Lantus 12 units twice daily, maintained on her previous dose of sliding scale, discharged on oral amoxicillin to complete 7 days of treatment for suspected dental abscess, highly recommended to follow-up with her hedis analyst in 2 weeks, follow-up with PCP in 1 week. This note was generated with [employer] dictation software. It may contain incorrect words, spelling, and punctuation that were not noted in checking the note before signing. Patient Problems: Active and Suspected Problems (Last Updated 04/25/19 @ 21:37 by Marcial Diehl MD) DKA (diabetic ketoacidoses) (Acute) LAUREN (acute kidney injury) (Acute) Leukocytosis (Acute) Dental abscess (Suspected) - Physical Exam Vitals/I&O's: Vital Signs Temp Pulse Resp BP Pulse Ox 98.4 F 70 18 111/74 100 04/27/19 08:20 04/27/19 08:20 04/27/19 08:20 04/27/19 08:20 04/27/19 08:20 Oxygen Delivery Method Room Air Weight: 103 lb 14.4 oz Body Mass Index (BMI) 16.6 Finger Stick Blood Glucose 75 Intake and Output for Last 24 Hours 04/25/19 04/26/19 04/27/19 23:59 23:59 23:59 Intake Total 2378.66 / 2378.66 3551.08 / 3551.08 Output Total 2600 / 2600 Balance 2378.66 / 2378.66 951.08 / 951.08 General: Alert, Oriented x3, Cooperative, No apparent distress HEENT: Atraumatic, PERRLA, EOMI, Normocephalic Oral: Moist Mucosa, - - Dental caries, gingival swelling. Neck: Supple, No JVD, Negative Carotid Bruits, Trachea Midline, Thyroid Normal Size and Texture Lungs: Clear to auscultation, Normal air movement, No rhonchi, No wheeze, No rales Cardiovascular: Regular rate, Regular Rhythm, Normal S1, Normal S2, No murmurs, PMI Normal Abdomen: Bowel Sounds Present, Soft, Non Tender, Non-Distended, No Hepato-splenomegaly Extremities: No clubbing, No cyanosis, No edema Skin: No rashes, No breakdown Lymphatic: No Cervical, Supraclavicular, or Inguinal Adenopathy Neurological: Cranial nerves II-XII grossly intact, Neuro grossly intact Psych/Mental Status: Normal Affect, Appropriate, Alert and oriented to time, place, person, mood and affect Laboratory Results 04/26/19 04:20: Diff Path Review Reviewed 04/26/19 11:00: POC Glucose 92 04/26/19 11:55: Sodium 141, Potassium 3.4 L, Chloride 115 H, Carbon Dioxide 17.0 L, Anion Gap 9, BUN 9, Creatinine 0.73, Estim Creat Clear Calc 76.05, Est GFR (MDRD) Af Amer 113, Est GFR (MDRD) Non-Af 94, BUN/Creatinine Ratio 12.4, Glucose 78, Calcium 7.8 L 04/26/19 12:00: POC Glucose 75 04/26/19 16:24: POC Glucose 233 H 04/26/19 22:32: POC Glucose 276 H 04/27/19 06:00: WBC 7.1, RBC 3.85 L, Hgb 11.8 L, Hct 35.8 L, MCV 93.0 D, MCH 30.6, MCHC 33.0, RDW Std Deviation 40.9, RDW Coeff of Adrienne 11.9, Plt Count 263, MPV 10.1, Immature Gran % (Auto) 0.400, Neut % (Auto) 56.2, Lymph % (Auto) 35.9, [place] % (Auto) 6.9, Eos % (Auto) 0.3, Baso % (Auto) 0.3, Absolute Neuts (auto) 4.0, Absolute Lymphs (auto) 2.56, Nucleated RBC % 0 04/27/19 06:26: POC Glucose 230 H Current Medications Amoxicillin (Amoxil) 500 mg PO Q8 [facility] Stop: 05/01/19 08:01 Last Admin: 04/27/19 04:12 Dose: 500 mg Documented by: Dextrose (D50w Syringe) 0 gm IV X1 PRN; Protocol PRN Reason: Hypoglycemia Glucagon () 1 mg IM .X1 PRN PRN Reason: Hypoglycemia Sodium Chloride () 1,000 mls @ 999 mls/hr IV .Q1H1M ONE Last Infusion: 04/25/19 22:30 Dose: Infused Documented by: Sodium Chloride () 250 mls @ 15 mls/hr IV .[id number] PRN PRN Reason: Saline Flush Insulin Glargine (Lantus (Bkc)) 12 units SC BID [facility] Last Admin: 04/27/19 08:20 Dose: 12 units Documented by: Insulin Human Lispro (Humalog Kwikpen (Bkc)) 0 unit SC ACHS EPIFANIO; Protocol Last Admin: 04/27/19 07:06 Dose: 3 u Documented by: Morphine Sulfate () 1 mg IV Q4H PRN PRN PRN Reason: MODERATE AND SEVERE PAIN Ondansetron HCl (Zofran) 4 mg IV Q8H PRN PRN PRN Reason: NAUSEA/VOMITING Sodium Chloride () 10 - 40 ml IV UD PRN PRN Reason: SALINE FLUSH Discharge Activity: Return to Normal Activity Weight Bearing Status: Full weight bearing Call your doctor if you observe: Fever of 101 or Higher, Shortness of breath, Dizziness, Fainting spells, Chest pain, Increased palpitations (irregular heartbeat), Uncontrolled pain Home Medications: Medications to take at Discharge Insulin Lispro [Humalog] 3 unit SQ TID 04/25/19 Amoxicillin [Amoxil] 500 mg PO Q8 #20 cap 04/27/19 Insulin Glargine,Hum.rec.anlog [Lantus] 12 unit SQ BID #0 04/27/19 Following Prescrptions Were Given to Patient: Amoxicillin [Amoxil] 500 mg PO Q8 #20 cap Transmission Status: Received by [facility] Primary Care Physician: [facility] Doctor,Out of [NON-STAFF] - Please follow up with your Primary Care Physician in: 1 week. Disposition: Home Minutes spent on discharge:: 32 Patient Condition:: Stable Medical Necessity - Tobacco Use Smoking Status: Current every day smoker Tobacco Use: Cigarettes Meaningful Use Info Meaningful Use Diagnoses (Choose all that apply): None applicable Code Visit Inpatient E&M: 04560 Disch Hosp
[2019-04-27 11:45] LABS: Bedside Glucose 350 mg/dL (70-110)
== END 2019-04-27 13:24 | disposition home or self-care (01) | DRG 420 ==
LOC: ED 21:04 → ICU 21:33 → MS3 04-26 17:24
PROVIDERS: Admitting Provider Hospitalist; Emergency Provider Emergency Medicine; Visit Provider Hospitalist
DX: E10.10 Type 1 diabetes mellitus with ketoacidosis without coma (principal); E87.5 Hyperkalemia; K02.9 Dental caries, unspecified; K04.7 Periapical abscess without sinus; N17.9 Acute kidney failure, unspecified; Z79.4 Long term (current) use of insulin; R64 Cachexia; Z68.1 Body mass index [BMI] 19.9 or less, adult
CPT/HCPCS: 36415; 71045; 80048; 80307; 81001; 82009; 82803; 82962; 83036; 84484; 85025; 93005; 97802; 99285; 99406; J7030; J7120; A4216; J2405; J7799